=== PATIENT | female | born 1985 | race Caucasian/White ===

== ENCOUNTER 2020-11-08 12:19 | Emergency (ER) | payer SELFPAY ==
[~2020-11-08] VITALS: Ht 147.3 cm; Wt 48.1 kg
[2020-11-08] MEDS ORDERED: FAMOTIDINE 20 MG/2 ML VIAL IV ONE ×2 (12:45→13:31)
[2020-11-08] MEDS ORDERED: ONDANSETRON HCL INJ 2MG/ML 2ML 2 MG/ML VIAL IV ONE (12:45)
[2020-11-08] MEDS ORDERED: SODIUM CHLORIDE 0.9% 1000ML 1,000 ML IV STA (12:45)
[2020-11-08] MEDS ORDERED: ACETAMINOPHEN500 MG PO (13:00)
[2020-11-08] MEDS ORDERED: PROMETHAZINE HC25 M1 PO (13:00)
[2020-11-08] MEDS ORDERED: ONDANSETRON ODT4 MG PO (13:00)
[2020-11-08] MEDS ORDERED: FAMOTIDINE20 MG PO (13:00)
[2020-11-08] MEDS ORDERED: SODIUM CHLORIDE 0.9% 1000ML 1,000 ML ONE (13:24)
[2020-11-08] MEDS ORDERED: KETOROLAC TROMETHAMINE 30 MG/ML VIAL ONE (13:24)
[2020-11-08] MEDS ORDERED: KETOROLAC TROMETHAMINE 30 MG/ML VIAL IV ONE (13:30)
[2020-11-08] MEDS ORDERED: IOPAMIDOL 370 MG/ML 200 ML INFUS..BTL INJ ONE (13:43)
[2020-11-08] MEDS ORDERED: SODIUM CHLORIDE 0.9% 50ML 50 ML ONE (13:44)
== END 2020-11-08 15:52 | disposition home or self-care (01) ==
LOC: FSED 12:32
DX: R10.11 Right upper quadrant pain (principal); R11.2 Nausea with vomiting, unspecified; K52.9 Noninfective gastroenteritis and colitis, unspecified; F32.9 Major depressive disorder, single episode, unspecified; E28.2 Polycystic ovarian syndrome
CPT/HCPCS: 74177; 80053; 81003; 81025; 85025; 99283; J1885; J2405; J7030; Q9967